=== PATIENT | male | born 1965 | race Caucasian/White ===

== ENCOUNTER 2024-12-04 09:00 | Emergency (ER) | payer BC ==
--- NOTE | 2024-12-04 10:05 | ED ---
General Adult HPI - General Chief complaint: Extremity Injury, Lower Stated complaint: left ankle pain Time Seen by Provider: 12/04/24 09:54 Source: patient, RN notes reviewed Mode of arrival: ambulatory Limitations: no limitations - History of Present Illness Initial comments: Patient is a 59-year-old male present to the emergency department with concerns for left ankle discomfort. Onset of symptoms was around 9 days ago. Patient does not recall any injury. Patient did have significant swelling however that has mostly resolved. No fevers. No redness. No history of similar symptoms previously. No other area of involvement. Patient has significant increase in discomfort with position changes and ambulation. - Related Data Previous Rx's Medication Instructions Recorded methylPREDNISolone Dose Pack 4 mg PO DIRECTED #21 tab 12/04/24 [Medrol Dose Pack] Allergies Allergy/AdvReac Type Severity Reaction Status Date / Time No Known Allergies Allergy Verified 12/04/24 09:33 Review of Systems ROS Statement: Those systems with pertinent positive or pertinent negative responses have been documented in the HPI. ROS Other: All systems not noted in ROS Statement are negative. Constitutional: Denies: fever, chills Eyes: Denies: eye pain ENT: Denies: ear pain Respiratory: Denies: dyspnea Cardiovascular: Denies: chest pain Endocrine: Denies: fatigue Gastrointestinal: Denies: abdominal pain Genitourinary: Denies: dysuria Musculoskeletal: Reports: as per HPI, arthralgia. Denies: back pain Past Medical History Past Medical History: No Reported History History of Any Multi-Drug Resistant Organisms: None Reported Past Surgical History: Tonsillectomy Past Psychological History: No Psychological Hx Reported Smoking Status: Current every day smoker Past Alcohol Use History: None Reported Past Drug Use History: None Reported, Marijuana General Exam Limitations: no limitations General appearance: alert, in no apparent distress Head exam: Present: normocephalic Eye exam: Present: normal appearance Neck exam: Present: normal inspection Respiratory exam: Present: normal lung sounds bilaterally Cardiovascular Exam: Present: regular rate, normal rhythm Expanded Peripheral pulses: 2+: Posterior Tibialis (L), Dorsalis Pedis (L) GI/Abdominal exam: Present: soft. Absent: tenderness Extremities exam: Present: other (Left anterior lateral ankle with minimal swelling. There is mild tenderness in this region, just anterior to the lateral malleolus. Distally the extremity is neurovascular intact.). Absent: pedal edema, calf tenderness Neurological exam: Present: alert Psychiatric exam: Present: normal affect, normal mood Skin exam: Present: normal color. Absent: rash Course Vital Signs 12/04/24 09:32 Temperature 97.9 F Pulse Rate 97 Respiratory 20 Rate Blood Pressure 147/93 O2 Sat by Pulse 97 Oximetry Medical Decision Making - Medical Decision Making Was pt. sent in by a medical professional or institution (, PA, FELLER MACHINE OPERATOR, urgent care, hospital, or residential...) When possible be specific @ -No Did you speak to anyone other than the patient for history (EMS, parent, family, police, friend...)? What history was obtained from this source @ -No Did you review nursing and triage notes (agree or disagree)? Why? @ -I reviewed and agree with nursing and triage notes Were old charts reviewed (outside hosp., previous admission, EMS record, old EKG, old radiological studies, urgent care reports/EKG's, residential records)? Report findings @ -No old charts were reviewed Differential Diagnosis (chest pain, altered mental status, abdominal pain women, abdominal pain men, vaginal bleeding, weakness, fever, dyspnea, syncope, headache, dizziness, GI bleed, back pain, seizure, CVA, palpatations, mental health, musculoskeletal)? @ -Differential Musculoskeletal Muscular strain, contusion, ligament sprain, fracture, arthritis, septic arthritis, bursitis, cellulitis, muscle spasm, nerve compression, DVT, arterial occlusion, herpes zoster, electrolyte abnormality, tumor.... This is not meant to be in all inclusive list EKG interpreted by me (3pts min.). @ -As above X-rays interpreted by me (1pt min.). @ -Lumbar spine shows some degenerative changes, no acute abnormality. X-ray left ankle without acute fracture CT interpreted by me (1pt min.). @ -None done U/S interpreted by me (1pt. min.). @ -Ultrasound left lower extremity negative for DVT What testing was considered but not performed or refused? (CT, X-rays, U/S, labs)? Why? @ -None What meds were considered but not given or refused? Why? @ -None Did you discuss the management of the patient with other professionals (professionals i.e. , [facility], FELLER MACHINE OPERATOR, lab, RT, psych nurse, social media project manager, jewel oliving machine operator, teacher, special assets officer, machine adjuster leader case trim)? Give summary @ -No Was smoking cessation discussed for >3mins.? @ -No Was critical care preformed (if so, how long)? @ -No Were there social determinants of health that impacted care today? How? (Homelessness, low income, unemployed, alcoholism, drug addiction, transportation, low edu. Level, literacy, decrease access to med. care, correction, rehab)? @ -No Was there de-escalation of care discussed even if they declined (Discuss DNR or withdrawal of care, Hospice)? DNR status @ -No What co-morbidities impacted this encounter? (DM, HTN, Smoking, COPD, CAD, Cancer, CVA, ARF, Chemo, Hep., AIDS, mental health diagnosis, sleep apnea, morbid obesity)? @ -None Was patient admitted / discharged? Hospital course, mention meds given and route, prescriptions, significant lab abnormalities, going to OR and other pertinent info. @ -Patient presents with left ankle discomfort. Mild tenderness and mild swelling left anterior lateral malleolus. Workup otherwise unremarkable. Patient reevaluated and updated. Undiagnosed new problem with uncertain prognosis? @ -No Drug Therapy requiring intensive monitoring for toxicity (Heparin, Nitro, Insulin, Cardizem)? @ -No Were any procedures done? @ -No Diagnosis/symptom? @ -Ankle pain Acute, or Chronic, or Acute on Chronic? @ -Acute Uncomplicated (without systemic symptoms) or Complicated (systemic symptoms)? @ -Default Side effects of treatment? @ -No Exacerbation, Progression, or Severe Exacerbation? @ -No Poses a threat to life or bodily function? How? (Chest pain, [place], [place], pneumonia, PE, COPD, DKA, ARF, appy, cholecystitis, CVA, Diverticulitis, Homicidal, Suicidal, threat to staff... and all critical care pts) @ -No Disposition Clinical Impression: Ankle pain Disposition: HOME SELF-CARE Condition: Stable Instructions (If sedation given, give patient instructions): Arthralgia (ED) Additional Instructions: Please do follow-up with primary care physician in the next couple of days for recheck. Prescription for steroids has been sent to pharmacy. Ice to affected area. Use splint. Return for increased pain, swelling, fever, redness, worsening or changing symptoms or any other concerns. Prescriptions: methylPREDNISolone Dose Pack [Medrol Dose Pack] 4 mg PO DIRECTED #21 tab Is patient prescribed a controlled substance at d/c from ED?: No Referrals: [facility] [NON-STAFF] - 1-2 days (Contact a primary care office to become established with a provider. ) [facility] [NON-STAFF] - 1-2 days None,Stated [Primary Care Provider] - 1-2 days Forms: Area PCPs Time of Disposition: 11:43
--- NOTE | 2024-12-04 10:29 | XR ---
EXAMINATION TYPE: XR ankle complete LT DATE OF EXAM: 12/04/2024 10:20 AM COMPARISON: None. CLINICAL INDICATION: Male, 59 years old with history of pain, TECHNIQUE: XR ankle complete LT, views submitted for evaluation. FINDINGS: There is no evidence for fracture or dislocation. The joint spaces appear within normal limits. The overlying soft tissue appears unremarkable. Ankle mortise is intact. Soft tissues are within normal l imits. IMPRESSION: 1. No evidence for acute fracture. [facility], , 12/04/2024 10:26 AM
--- NOTE | 2024-12-04 10:30 | XR ---
EXAMINATION TYPE: XR lumbar spine 2 or 3V DATE OF EXAM: 12/04/2024 10:20 AM COMPARISON: None. CLINICAL INDICATION: Male, 59 years old with history of pain, TECHNIQUE: Frontal, lateral, and oblique images of the lumbar spine are obtained. FINDINGS: There are 5 lumbar type vertebral bodies identified. The lumbar spine shows satisfactory alignment without evidence of acute fracture or dislocation. Vertebral body heights are within normal limits. Scattered [id number] degenerative disc space narrowing. Mild facet joint arthropathy. The overlying soft tissue appears unremarkable. IMPRESSION: No acute fracture or dislocation is seen in the lumbar spine.ICD 10 NO FRACTURE, INITIAL EVALUATION [facility], , 12/04/2024 10:27 AM
[2024-12-04] MEDS: KETOROLAC 15 MG/ML 1 ML VIAL IM STA (10:33)
--- NOTE | 2024-12-04 11:08 | US ---
EXAMINATION TYPE: US venous doppler duplex LE LT DATE OF EXAM: 12/04/2024 9:23 AM COMPARISON: NONE CLINICAL INDICATION: Male, 59 years old with history of pain; pain in left lower leg x 9 days. No hx of DVT. Not on blood thinners, Pain TECHNIQUE: The lower extremity deep venous system is examined utilizing real time linear array sonog zayda with graded compression, color doppler sonography, and spectral doppler. SIDE PERFORMED: Left FINDINGS: VESSELS IMAGED: Common Femoral Vein Deep Femoral Vein Greater Saphenous Vein * Femoral Vein Popliteal Vein Small Saphenous Vein * Proximal Calf Veins (* superficial vessels) Left Leg: No evidence for DVT. Rouleaux flow noted in popliteal vein., Color Doppler imaging shows p atency of the vessels. Spectral waveforms are within normal limits. IMPRESSION: No ultrasound evidence for deep venous thrombosis. [facility], , 12/04/2024 11:06 AM
[2024-12-04] MEDS: ACET/COD 300 MG/30 MG STARTER PACK 6 TAB BTL PO STA (11:59)
[2024-12-04 12:10] VITALS: BP 138/90; PULSE 75; RESP 16; TEMP 98.1
== END 2024-12-04 12:11 | disposition home or self-care (01) ==
LOC: EC 09:00
DX: M25.572 Pain in left ankle and joints of left foot (principal); F17.200 Nicotine dependence, unspecified, uncomplicated
CPT/HCPCS: 72100; 73610; 93971; 99284; 96372; 29515; L4350; J1885